=== PATIENT | female | born 1970 | race Caucasian/White ===

== ENCOUNTER 2019-08-12 17:29 | Emergency (ER) | payer OTHER ==
[~2019-08-12] VITALS: Ht 147.3 cm; Wt 76.4 kg
[2019-08-12] MEDS ORDERED: KETOROLAC TROMETHAMINE 60 MG/2 ML VIAL IM ONE (19:15)
[2019-08-12] MEDS ORDERED: ACETAMINOPHEN/CODEINE 300-30 MG TABLET PO ONE (19:15)
[2019-08-12 19:45] VITALS: BP 114/71
== END 2019-08-12 21:22 | disposition home or self-care (01) ==
LOC: EMS 17:44
DX: S83.92XA Sprain of unspecified site of left knee, initial encounter (principal); S39.012A Strain of muscle, fascia and tendon of lower back, initial encounter; Z88.6 Allergy status to analgesic agent; W01.0XXA Fall on same level from slipping, tripping and stumbling without subsequent striking against object, initial encounter; Y93.89 Activity, other specified; Y92.89 Other specified places as the place of occurrence of the external cause; Y99.8 Other external cause status
CPT/HCPCS: 72100; 72170; 73562; 96372; 99284; J1885